=== PATIENT | female | born 1970 | race African-American/Black ===

== ENCOUNTER 2018-06-11 06:49 | Emergency (ER) | payer MEDICARE, MEDICAID ==
[~2018-06-11] VITALS: Ht 157.5 cm; Wt 90.7 kg
--- NOTE | 2018-06-11 07:05 | PHYS DOC ---
Past Medical History Past Medical History: Depression Smoking: Cigarettes, 1 Pack Per Day Adult General Chief Complaint Chief Complaint: CHEST PAIN HPI HPI Patient is a 48-year-old female who presents to the emergency department via EMS. She lives in [place], but is currently at [facility], where she is being treated for depression. She states that this morning, she awakened and had about 20 minutes of right-sided chest heaviness, which was worse with deep breathing. The pain was in her right upper chest, radiating towards her right lower chest. She states that by the time of her arrival in the emergency department, all of her symptoms have completely resolved. She is no longer having shortness of breath and is not having anymore chest pain or pleuritic pain. She denies any dizziness or lightheadedness, numbness, weakness. The pain did not radiate towards her back or shoulders. There are no alleviating or exacerbating factors to her symptoms. She does not have a history of hypertension, diabetes that she is aware of, or personal or family history of coronary artery disease. The patient's HEART score would be a 1, based on age only, assuming a negative troponin. Review of Systems Review of Systems Constitutional: Denies fever or chills [] Eyes: Denies change in visual acuity, redness, or eye pain [] HENT: Denies nasal congestion or sore throat [] Respiratory: Denies cough or current shortness of breath or pleuritic pain.[] Cardiovascular: No additional information not addressed in HPI [] GI: Denies abdominal pain, nausea, vomiting, bloody stools or diarrhea [] : Denies dysuria or hematuria [] Musculoskeletal: Denies back pain or joint pain [] Integument: Denies rash or skin lesions [] Neurologic: Denies headache, focal weakness or sensory changes [] Endocrine: Denies polyuria or polydipsia [] Psychiatric: The patient reports feeling anxious. All other systems were reviewed and found to be within normal limits, except as documented in this note. Current Medications Current Medications Current Medications Medications (Trade) Dose Ordered Sig/Marbin Start Time Stop Time Status Last Admin Dose Admin Lorazepam (Ativan) 1 mg 1X ONCE 06/11/18 07:45 06/11/18 07:46 DC 06/11/18 07:48 1 MG Allergies Allergies Allergies Coded Allergies Type Severity Reaction Last Updated Verified chlorpromazine Allergy Intermediate 06/11/18 Yes haloperidol Allergy Intermediate 06/11/18 Yes influenza virus vaccine ts [id number] (4 yr up) Allergy Intermediate 06/11/18 Yes Physical Exam Physical Exam PHYSICAL EXAM: CONSTITUTIONAL: Well developed, well nourished HEAD: normocephalic, atraumatic EENT: PERRL, EOMI. Conjunctivae normal color, sclerae non-icteric; moist mucous membranes. NECK: Supple, non-tender; no meningismus. LUNGS: Lungs CTA, breathing even and unlabored. Normal air movement. HEART: Regular rate and rhythm, no murmur CHEST: No deformity; non-tender ABDOMEN: The abdomen is soft, and non-tender, no masses or bruits. EXTREM: Normal ROM; no deformity, no calf tenderness. Normal pulses palpable in all extremities. There is no pedal edema. SKIN: No rash; no diaphoresis NEURO: Alert; normal speech and cognition; CN's grossly intact; strength grossly intact without focal deficit. BACK: No CVA TTP. Current Patient Data Vital Signs Vital Signs Date Time Temp Pulse Resp B/P (MAP) Pulse Ox O2 Delivery O2 Flow Rate FiO2 06/11/18 06:53 97.6 82 20 122/65 (84) 99 Room Air 97.6 Lab Values Laboratory Tests Test 06/11/18 07:45 D-Dimer (Bridgett) 0.30 ug/mlFEU (0.00-0.50) Sodium Level 139 mmol/L (136-145) Potassium Level 3.5 mmol/L (3.5-5.1) Chloride Level 103 mmol/L (98-107) Carbon Dioxide Level 27 mmol/L (21-32) Anion Gap 9 (6-14) Blood Urea Nitrogen 11 mg/dL (7-20) Creatinine 0.7 mg/dL (0.6-1.0) Estimated GFR (Cockcroft-Gault) 108.1 BUN/Creatinine Ratio 16 (6-20) Glucose Level 95 mg/dL (70-99) Calcium Level 8.8 mg/dL (8.5-10.1) Total Bilirubin 0.3 mg/dL (0.2-1.0) Aspartate Amino Transferase (AST) 16 U/L (15-37) Alanine Aminotransferase (ALT) 24 U/L (14-59) Alkaline Phosphatase 103 U/L (46-116) Creatine Kinase 111 U/L (26-192) Creatine Kinase MB (Mass) 1.7 ng/mL (0.0-3.6) Creatine Kinase MB Relative Index 1.5 % (0-4) Troponin I Quantitative < 0.017 ng/mL (0.000-0.055) VU-Tea-Q-Type Natriuretic Peptide 159 pg/mL (0-124) H Total Protein 7.3 g/dL (6.4-8.2) Albumin 3.3 g/dL (3.4-5.0) L Albumin/Globulin Ratio 0.8 (1.0-1.7) L Lipase 97 U/L (73-393) Laboratory Tests 06/11/18 07:45 EKG EKG [Normal sinus rhythm with a normal rate, normal axis, normal intervals, there are no acute ischemic ST/T changes.] Radiology/Procedures Radiology/Procedures [PROCEDURE: PORTABLE CHEST 1V Portable chest, 06/11/2018: HISTORY: Chest pain The heart size and pulmonary vascularity are normal. No pulmonary infiltrate is seen. There is no evidence of pleural fluid. IMPRESSION: No acute cardiopulmonary abnormality is detected.] Course & Med Decision Making Course & Med Decision Making Pertinent Labs and Imaging studies reviewed. (See chart for details) [9:35 AM: The patient's condition remains stable. She is feeling better, her pain has improved. I'm not highly suspicious that her pain is cardiac in origin. She leaves it is related to anxiety and I tend to agree. Her pain is right-sided and atypical, and she risk stratifies low. I discussed test results in detail with the patient. We discussed return precautions and the need for close follow-up.] The patient required multiple Lab sticks to get blood for lab analysis. A CBC tube could not be obtained. I do not think this is critical. I did obtain records from [facility] from 06/08, the patient had unremarkable CBC. Dragon Disclaimer Dragon Disclaimer This electronic medical record was generated, in whole or in part, using a voice recognition dictation system. Departure Departure Impression: Primary Impression: Atypical chest pain Disposition: HOME, SELF-CARE Condition: STABLE Referrals: CARMEN CLAUDIO MD Patient Instructions: Anxiety and Panic Attacks, Chest Pain (Nonspecific) HENRY SPENCE MD Jun 11, 2018 07:04
--- NOTE | 2018-06-11 07:41 | RAD ---
Portable chest, 06/11/2018: HISTORY: Chest pain The heart size and pulmonary vascularity are normal. No pulmonary infiltrate is seen. There is no evidence of pleural fluid. IMPRESSION: No acute cardiopulmonary abnormality is detected. Electronically signed by: Salvatore Hayes MD (06/11/2018 7:37 AM) [facility]
[2018-06-11] MEDS ORDERED: LORazepam 1 MG TABLET PO ONE (07:45)
--- NOTE | 2018-06-11 08:10 | EKG ---
[facility] [address] [place] [address] Test Date: 2018-06-11 Test Time: 06:54:27 Pat Name: OPAL ANTOINE Department: Room: Gender: F Room Service Supervisor: : 1970 Requested By: HENRY SPENCE Order Number: [id number] Reading MD: Measurements Intervals [place] Rate: 76 P: 27 UT: 112 QRS: 54 QRSD: 84 T: 39 QT: 410 QTc: 466 Interpretive Statements SINUS RHYTHM NO SPECIFIC ECG ABNORMALITIES RI6.01 No previous ECG available for comparison
[2018-06-11 08:29] LABS: CALCIUM 8.8 mg/dL (8.5-10.1); CREATININE 0.7 mg/dL (0.6-1.0); GFR 108.1; POTASSIUM 3.5 mmol/L (3.5-5.1)
[2018-06-11 08:35] LABS: ALBUMIN 3.3 g/dL (3.4-5.0); ALBUMIN/GLOBULIN RATIO 0.8 (1.0-1.7); TOTAL BILIRUBIN 0.3 mg/dL (0.2-1.0); TOTAL PROTEIN 7.3 g/dL (6.4-8.2)
[2018-06-11 09:50] VITALS: BP 142/88
== END 2018-06-11 10:40 | disposition home or self-care (01) ==
LOC: ER 06:49
DX: R07.89 Other chest pain (principal); F32.9 Major depressive disorder, single episode, unspecified; F17.210 Nicotine dependence, cigarettes, uncomplicated; Z88.8 Allergy status to other drugs, medicaments and biological substances; Z88.7 Allergy status to serum and vaccine
CPT/HCPCS: 36415; 71045; 80053; 82553; 83690; 83880; 84484; 85379; 93005; 99284